=== PATIENT | male | born 1960 | race Caucasian/White ===

== ENCOUNTER 2018-06-09 08:56 | Emergency (ER) | payer BC ==
[2018-06-09 09:30] VITALS: BP 143/94
[2018-06-09] MEDS ORDERED: Sodium Chloride 0.9% 10 ML Syringe FLUSH PRN (09:37)
--- NOTE | 2018-06-09 12:04 | EDM.PDOC ---
ED HPI GENERAL MEDICAL PROBLEM - General Chief Complaint: Flank Pain Stated Complaint: POSSIBLE KIDNEY STONE Time Seen by Provider: 06/09/18 09:28 Source of Information: Reports: Patient, RN Notes Reviewed - History of Present Illness INITIAL COMMENTS - FREE TEXT/NARRATIVE: 58-year-old male comes in having had quite severe left back and flank discomfort that started early this morning about 6 hours ago. Pain was very intense L back and flank until arrival to the ED when it suddenly resolved. He has had prior kidney stone, this felt very similar. The pain is primarily in the left back and left flank with radiation to the left groin. The pain did not cross over to the right side. No nausea vomiting fever or chills. No voiding symptomatology but when he did provide a urine for us after arrival to the ED it was noted to be quite dark with a few small clots present. Treatments PIZZA CHEF: Reports: NSAIDS Left Flank Pain Score (Numeric/FACES): 8 - Related Data Allergies Allergy/AdvReac Type Severity Reaction Status Date / Time No Known Allergies Allergy Verified 06/09/18 09:03 Home Meds: Home Meds Acetaminophen/HYDROcodone [[place] 325-5 MG] 1 tab PO Q6H PRN #14 tablet 06/09/18 [Rx] Multivitamin [Multi-Vitamin Daily] 1 tab PO DAILY 06/09/18 [History] Past Medical History HEENT History: Reports: Impaired Vision Cardiovascular History: Reports: High Cholesterol Genitourinary History: Reports: Renal Calculus - Past Surgical History HEENT Surgical History: Reports: Oral Surgery GI Surgical History: Reports: Cholecystectomy Social & Family History - Family History Family Medical History: Noncontributory - Tobacco Use Smoking Status *Q: Never Smoker - Caffeine Use Caffeine Use: Reports: Coffee - Recreational Drug Use Recreational Drug Use: No ED ROS GENERAL - Review of Systems Review Of Systems: See Below Constitutional: Denies: Fever, Chills, Diaphoresis HEENT: Reports: No Symptoms Respiratory: Denies: Shortness of Breath Cardiovascular: Denies: Chest Pain GI/Abdominal: Reports: Abdominal Pain (Primary left flank and left lower abdominal pain). Denies: Diarrhea, Nausea, Vomiting : Reports: No Symptoms Musculoskeletal: Reports: Back Pain (Left lower back) Skin: Denies: Rash Neurological: Reports: No Symptoms ED EXAM, RENAL/ - Physical Exam Exam: See Below General Appearance: Alert, No Apparent Distress Eye Exam: Bilateral Eye: PERRL Throat/Mouth: Normal Inspection, Normal Oropharynx Head: Atraumatic. No: Facial Swelling Neck: Supple Respiratory/Chest: No Respiratory Distress, Lungs Clear, Normal Breath Sounds Cardiovascular: Regular Rate, Rhythm GI/Abdominal: Soft, Non-Tender. No: Guarding, Rebound Back Exam: No: CVA Tenderness (L), CVA Tenderness (R) Extremities: Normal Inspection, Normal Range of Motion. No: Pedal Edema, Leg Pain Neurological: Alert, Oriented, No Motor/Sensory Deficits Skin Exam: Warm, Dry, Normal Color Course - Vital Signs Last Recorded V/S: Last Vital Signs Temp 98.6 F 06/09/18 09:06 Pulse 84 06/09/18 09:06 Resp 16 06/09/18 09:06 BP 143/94 H 06/09/18 09:06 Pulse Ox 100 06/09/18 09:06 - Orders/Labs/Meds Orders: Active Orders 24 hr Category Date Time Status Peripheral IV Care [RC] . DIRECTED Care 06/09/18 09:37 Active CULTURE URINE [RM] Stat Lab 06/09/18 09:00 Received Peripheral IV Insertion Adult [OM.PC] Stat Oth 06/09/18 09:37 Ordered Labs: Laboratory Tests 06/09/18 06/09/18 06/09/18 Range/Units 09:00 09:05 09:05 WBC 15.89 H (4.23-9.07) K/mm3 RBC 5.45 (4.63-6.08) M/mm3 Hgb 16.5 (13.7-17.5) gm/L Hct 46.9 (40.1-51.0) % MCV 86.1 (79.0-92.2) fl MCH 30.3 (25.7-32.2) pg MCHC 35.2 (32.2-35.5) g/dl RDW Std Deviation 38.8 (35.1-43.9) fL Plt Count 330 (163-337) K/mm3 MPV 8.4 L (9.4-12.3) fl Neut % (Auto) 86.5 H (34.0-67.9) % Lymph % (Auto) 6.2 L (21.8-53.1) % Hall % (Auto) 6.9 (5.3-12.2) % Eos % (Auto) 0.1 L (0.8-7.0) Baso % (Auto) 0.1 (0.1-1.2) % Neut # (Auto) 13.76 H (1.78-5.38) K/mm3 Lymph # (Auto) 0.98 L (1.32-3.57) K/mm3 Hall # (Auto) 1.10 H (0.30-0.82) K/mm3 Eos # (Auto) 0.01 L (0.04-0.54) K/mm3 Baso # (Auto) 0.01 (0.01-0.08) K/mm3 Sodium 135 L (136-145) mEq/L Potassium 4.1 (3.5-5.1) mEq/L Chloride 104 (98-107) mEq/L Carbon Dioxide 21 (21-32) mEq/L Anion Gap 14.1 (5-15) BUN 19 H (7-18) mg/dL Creatinine 1.5 H (0.7-1.3) mg/dL Est Cr Clr Drug Dosing 61.40 mL/min Estimated GFR (MDRD) 48 (>60) mL/min BUN/Creatinine Ratio 12.7 L (14-18) Glucose 123 H (74-106) mg/dL Calcium 9.5 (8.5-10.1) mg/dL Total Bilirubin 0.8 (0.2-1.0) mg/dL AST 29 (15-37) U/L ALT 39 (16-63) U/L Alkaline Phosphatase 97 (46-116) U/L Total Protein 7.8 (6.4-8.2) g/dl Albumin 4.3 (3.4-5.0) g/dl Globulin 3.5 gm/dL Albumin/Globulin Ratio 1.2 (1-2) Urine Color Dark yellow (Yellow) Urine Appearance Cloudy H (Clear) Urine pH 6.0 (5.0-8.0) Ur Specific [place] > or = 1.030 (1.005-1.030) Urine Protein 2+ H (Negative) Urine Glucose (UA) Negative (Negative) Urine Ketones 2+ H (Negative) Urine Occult Blood 3+ H (Negative) Urine Nitrite Negative (Negative) Urine Bilirubin 1+ H (Negative) Urine Urobilinogen 0.2 (0.2-1.0) Ur Leukocyte Esterase Negative (Negative) Urine RBC Too numerous to cnt H (0-5) /hpf Urine WBC 0-5 (0-5) /hpf Ur Epithelial Cells 0-5 (0-5) /hpf Urine Bacteria Few (FEW) /hpf Urine Mucus Few (FEW) /hpf Meds: Medications Discontinued Medications Generic Name Dose Route Start Last Admin Trade Name Shanell PRN Reason Stop Dose Admin Sodium Chloride 10 ml 06/09/18 09:37 06/09/18 10:08 Saline Flush FLUSH 10 ml ASDIRECTED PRN Administration Keep Vein Open - Re-Assessments/Exams Free Text/Narrative Re-Assessment/Exam: 06/09/18 15:13 Patient continued pain-free while here in the ED, UA did show hematuria but no other acute findings. Because his pain was completely gone and did not have further discomfort while awaiting labs we did not do a renal CT. I do feel it would be luther to at least get an ultrasound of his kidneys. Patient is agreeable to that on an outpatient basis, discharge instructions as documented. Departure - Departure Time of Disposition: 11:58 Disposition: Home, Self-Care 01 Condition: Fair Clinical Impression: Ureteric colic, Kidney stone on left side Hematuria Qualifiers: Hematuria type: unspecified type Qualified Code(s): R31.9 - Hematuria, unspecified - Discharge Information Prescriptions: Acetaminophen/HYDROcodone [[place] 325-5 MG] 1 tab PO Q6H PRN #14 tablet PRN Reason: Pain Instructions: Kidney Stones, [id number], Hematuria, Adult Referrals: PCP,None [Primary Care Provider] - Forms: ED Department Discharge Additional Instructions: Strain urine to watch for stone, drink plenty of water to maintain hydration, Tylenol if needed for mild to moderate discomfort or hydrocodone if needed for more severe pain, return to ED if you start having more severe pain not easily relieved with medication, follow-up clinic early next week for recheck. Because we have not done a CAT scan today it isreasonable that you at least have a renal ultrasound outpatient basis to get a look at your kidneys. Order for this has been written, at time should be provided to you at time of discharge. Follow -up [facility] medical clinic early next week for repeat evaluation, follow-up urine culture and renal ultrasound. Return to ED if symptoms worsening in any way. - My Orders Last 24 Hours: My Active Orders 06/09/18 09:00 CULTURE URINE [RM] Stat 06/09/18 09:37 Peripheral IV Care [RC] . DIRECTED Peripheral IV Insertion Adult [OM.PC] Stat - Assessment/Plan Last 24 Hours: My Active Orders 06/09/18 09:00 CULTURE URINE [RM] Stat 06/09/18 09:37 Peripheral IV Care [RC] . DIRECTED Peripheral IV Insertion Adult [OM.PC] Stat
== END 2018-06-09 12:17 | disposition home or self-care (01) ==
LOC: JD.ED 08:56
DX: N20.2 Calculus of kidney with calculus of ureter (principal); R31.9 Hematuria, unspecified; E78.00 Pure hypercholesterolemia, unspecified; Z79.899 Other long term (current) drug therapy
CPT/HCPCS: 36415; 80053; 81001; 85025; 87086; 99284; J7050

== ENCOUNTER 2018-06-14 12:32 | Emergency (ER) | payer BC ==
[2018-06-14 13:07] VITALS: BP 139/93
[2018-06-14] MEDS ORDERED: HYDROmorphone 0.5 MG/0.5 ML SYRINGE IVPUSH ONE ×2 (13:43→15:14)
[2018-06-14] MEDS ORDERED: Sodium Chloride 0.9% 10 ML Syringe FLUSH PRN (13:43)
--- NOTE | 2018-06-14 14:12 | EDM.PDOC ---
<Latricia Cabello - Last Filed: 06/14/18 13:58> ED HPI GENERAL MEDICAL PROBLEM - General Chief Complaint: Genitourinary Problem Stated Complaint: KIDNEY STONE Time Seen by Provider: 06/14/18 12:59 Source of Information: Reports: Patient History Limitations: Reports: No Limitations - History of Present Illness INITIAL COMMENTS - FREE TEXT/NARRATIVE: Nam is a 58-year old male with recent history of kidney stones who reports with left mid-back/flank pain with acute onset at 12pm today. Pain has been constant since initial onset and described as 7/10 in intensity. There are no aggravating or alleviating factors. Pain does not radiate to his groin. He was seen in the ED 6 days ago for the same problem, but pain resolved upon arrival in the ED. He is scheduled for a renal ultrasound tomorrow. Nam reports he does not like drinking water because it "just doesn't quench my thirst." He drinks 0-1 cups of water per day. On some days, he drinks no water. He does drink green tea, which is caffeinated. He also takes a daily multivitamin. Nam denies fever, chills, and diaphoresis. He does not endorse pain or burning with urination, and has a steady urine flow while urinating. He does report seeing blood in his urine. He has been using a strainer for his urine and has not passed a stone since his ED visit 6 days ago. Onset: Today, Sudden Onset Time: 12:00 Duration: Constant Quality: Reports: Same as Previous Episode (same as prior episode 6 days ago) Severity: Moderate Left Flank Pain Score (Numeric/FACES): 6 - Related Data Allergies Allergy/AdvReac Type Severity Reaction Status Date / Time No Known Allergies Allergy Verified 06/09/18 09:03 Home Meds: Home Meds Acetaminophen/HYDROcodone [[place] 325-5 MG] 1 tab PO Q6H PRN #14 tablet 06/09/18 [Rx] Multivitamin [Multi-Vitamin Daily] 1 tab PO DAILY 06/09/18 [History] Tamsulosin HCl [Flomax] 0.4 mg PO DAILY #10 cap.er.24h 06/14/18 [Rx] Past Medical History HEENT History: Reports: Impaired Vision Cardiovascular History: Reports: High Cholesterol Genitourinary History: Reports: Renal Calculus - Past Surgical History HEENT Surgical History: Reports: Oral Surgery GI Surgical History: Reports: Cholecystectomy Social & Family History - Family History Family Medical History: Noncontributory - Tobacco Use Smoking Status *Q: Never Smoker - Caffeine Use Caffeine Use: Reports: Coffee, Soda - Recreational Drug Use Recreational Drug Use: No ED ROS GENERAL - Review of Systems Constitutional: Denies: Fever, Chills, Diaphoresis Cardiovascular: Denies: Lightheadedness, Syncope Endocrine: Denies: Polydypsia, Polyuria GI/Abdominal: Denies: Abdominal Pain, Nausea, Vomiting ED EXAM, RENAL/ - Physical Exam Exam Limited By: No Limitations General Appearance: Alert, Mild Distress Throat/Mouth: Other (dry mucous membranes) Respiratory/Chest: Lungs Clear, Normal Breath Sounds Cardiovascular: Normal Peripheral Pulses, Regular Rate, Rhythm GI/Abdominal: Soft, Non-Tender, No Distention Back Exam: CVA Tenderness (L) Extremities: Normal Capillary Refill Neurological: Alert, Oriented, Normal Cognition Psychiatric: Normal Affect, Normal Mood Skin Exam: Dry. No: Diaphoretic Course - Vital Signs Last Recorded V/S: Last Vital Signs Temp 98.2 F 06/14/18 13:05 Pulse 70 06/14/18 13:05 Resp 20 06/14/18 13:05 BP 139/93 H 06/14/18 13:05 Pulse Ox 96 06/14/18 13:05 - Orders/Labs/Meds Orders: Active Orders 24 hr Category Date Time Status Peripheral IV Care [RC] . DIRECTED Care 06/14/18 13:43 Active Peripheral IV Insertion Adult [OM.PC] Stat Oth 06/14/18 13:42 Ordered Meds: Medications Discontinued Medications Generic Name Dose Route Start Last Admin Trade Name Freq PRN Reason Stop Dose Admin Hydromorphone HCl 0.5 mg 06/14/18 13:43 06/14/18 13:55 Dilaudid IVPUSH 06/14/18 13:44 0.5 mg ONETIME ONE Administration Hydromorphone HCl 0.5 mg 06/14/18 15:14 06/14/18 15:25 Dilaudid IVPUSH 06/14/18 15:15 0.5 mg ONETIME ONE Administration Sodium Chloride 10 ml 06/14/18 13:43 06/14/18 13:57 Saline Flush FLUSH 10 ml ASDIRECTED PRN Administration Keep Vein Open Departure - Departure Disposition: Home, Self-Care 01 Clinical Impression: Kidney stone on left side, Ureteric colic - Discharge Information Prescriptions: Tamsulosin HCl [Flomax] 0.4 mg PO DAILY #10 cap.er.24h Instructions: Renal Colic, [id number], Kidney Stones, [id number] Referrals: PCP,None [Primary Care Provider] - Forms: ED Department Discharge Additional Instructions: drink plenty of water, continue to strain urine to watch for stone, flomax 0.4 mg daily is a medication that is believed to help increase the liklihood that you will pass the stone. tylenol for mild to moderate pain or pain medication previously prescribed for severe pain as needed, do not drive or work when taking opiod pain medication. See Urologist later this week if possible, call [phone]. Return to ED as needed. - My Orders Last 24 Hours: My Active Orders 06/14/18 13:42 Peripheral IV Insertion Adult [OM.PC] Stat 06/14/18 13:43 Peripheral IV Care [RC] . DIRECTED - Assessment/Plan Last 24 Hours: My Active Orders 06/14/18 13:42 Peripheral IV Insertion Adult [OM.PC] Stat 06/14/18 13:43 Peripheral IV Care [RC] . DIRECTED <Ryan Mirza - Last Filed: 06/14/18 19:58> ED ROS GENERAL - Review of Systems Review Of Systems: See Below Respiratory: Denies: Shortness of Breath, Pleuritic Chest Pain Cardiovascular: Denies: Chest Pain : Denies: Dysuria, Hematuria Musculoskeletal: Reports: Back Pain (L back) Skin: Denies: Rash ED EXAM, RENAL/ - Physical Exam Exam: See Below General Appearance: Moderate Distress Head: No: Facial Swelling Neck: Supple Back Exam: No: CVA Tenderness (R), Paraspinal Tenderness, Vertebral Tenderness Extremities: Normal Inspection, Normal Range of Motion Skin Exam: Warm, Normal Color Course - Re-Assessments/Exams Free Text/Narrative Re-Assessment/Exam: 06/14/18 19:[address] does show a 5.6 mm stone L UVJ with hydronephrosis. I did discuss this with Dr Davis, Urologist [facility] for [facility]. He states he or one of his fellow staff will see patient in followup. Discharge instr. as documented. Departure - Departure Time of Disposition: 17:19 Condition: Fair
--- NOTE | 2018-06-14 14:27 | CT ---
CT abdomen and pelvis Technique: Multiple axial sections were obtained from above the dome of the diaphragm inferiorly through the pubic symphysis. Intravenous and oral contrast was not utilized. Study has been performed as a ureteral stone protocol. Comparison: No prior abdominal imaging. Findings: Dilated left ureter is seen. This finding is caused by an obstructing 5.6 obstructing stone located within the distal UVJ. No other abnormal calcifications are seen along the course of the right or left ureters. 2 small nonobstructing calculi are seen within the left kidney. 3 small nonobstructing calculi are noted within the right kidney. Visualized lung bases are clear. Liver shows a low-density lesion within the right lower measuring 1.9 cm in size having Hounsfield unit measurements of cyst. Small hiatal hernia is seen. Spleen appears within normal limits. Adrenal glands show no nodule. Pancreas is within normal limits. Surgical clips are seen from prior cholecystectomy. Aorta shows no aneurysm. No retroperitoneal adenopathy or mesenteric abnormalities are seen. No pelvic mass or adenopathy is seen. No free fluid is seen. Appendix is seen which is normal in size. Bone window settings were reviewed which appear within normal limits for the patient's age. Impression: 1. 5.6 mm obstructing stone within the distal left UVJ. This causes proximal hydronephrosis. 2. Small nonobstructing calculi within both kidneys. 3. Incidental cyst within the right lobe of the liver. Small hiatal hernia. Diagnostic code #3
== END 2018-06-14 17:30 | disposition home or self-care (01) ==
LOC: JD.ED 12:32
DX: N13.2 Hydronephrosis with renal and ureteral calculous obstruction (principal)
CPT/HCPCS: 74176; 96374; 96376; 99284; J1170; J7050